=== PATIENT | male | born 1985 | race Caucasian/White ===

== ENCOUNTER 2024-10-28 07:14 | Emergency (ER) | payer OTHER, SELFPAY ==
[2024-10-28 07:17] VITALS: BP 123/79; PULSE 84; RESP 20; TEMP 36.6; O2SAT 95; BMI 39.0
--- NOTE | 2024-10-28 07:29 | ED.GENADULT ---
HPI - General Adult General Chief complaint: Abdominal Pain Stated complaint: abd pain Time Seen by Provider: 10/28/24 07:29 History of Present Illness ED Provider: Lovely RESTREPO narrative: The patient is a 39-year-old male without significant past medical history. He is on no medications. He says that about 9 months ago he experienced lower abdominal pain and was seen at a [facility] Emergency room. He says that he had a CT scan of his abdomen and an ultrasound of his scrotum. No diagnosis was made. He followed up with his PCP at [facility] who did additional outpatient testing and put him on a course of antibiotics, possibly for an STD. He got better and did well for a few months until about 3 weeks ago when he had a recurrence of the same lower abdominal pain and low back pain. He went to an urgent care center last week and had an outpatient CT scan of the abdomen and pelvis with oral and IV contrast. He says that he was told that he had diverticulosis without diverticulitis but no other findings were made. His symptoms have continued and he comes to the hospital today. He says he has been worried in part because someone he spoke to told him a story about someone having an ulcer which ruptured. This made him worried that perhaps his symptoms could be a sign of an ulcer. The patient has had no fever, sweats, chills. He has had no change in his appetite. He has had no change in his bowel habits. He has had no urinary symptoms. The patient is and lives with his . The patient works as a mechanical project manager. He is to do a lot of heavy lifting at work. He says that although the pain is somewhat apparent when he is working he notices the pain most at night when he is not doing anything. He indicates that the pain is across his lower abdomen but he also feels some pain in his left lower back and in his left groin. The patient is smokes about 5 cigarettes per day. Related Data Allergies Allergy/AdvReac Type Severity Reaction Status Date / Time amoxicillin Allergy Hives Verified 10/28/24 07:17 Review of Systems Review of Systems: Yes all other systems are reviewed and are negative PMFSH Social History Social History Advance Directives: No Advance Directives Information Provided: Yes Physical Exam ED Vital Signs: Vital Signs - 24 hr 10/28/24 07:17 10/28/24 08:23 Temperature 97.9 F 97.9 F Pulse Rate 84 84 Respiratory Rate 20 20 Blood Pressure 123/79 123/79 Pulse Oximetry 95 95 Oxygen Delivery Method Room Air Room Air BMI result Body Mass Index 39.0 Const Other: The patient is awake and alert. He does not appear in obvious distress. He does not appear obviously ill. He seems to move around fairly easily. Orientation/consciousness: patient oriented x3 HENMT Other: The face is symmetrical. ?Mucous membranes moist. Eyes Other: Pupils are round equal, conjunctivae are clear, extraocular movements intact Neck Neck: Yes normal visual inspection and Yes full ROM Resp Effort & Inspection: normal respiratory effort Auscultation: clear to auscultation bilaterally Cardio Rate: regular rate Rhythm: regular rhythm Heart sounds: S1 normal heart sound present and S2 normal heart sound present GI Other: The abdomen is soft. He has some tenderness in both lower quadrants on across the lower abdomen generally in the region of the belt line. No rebound or guarding. Other: The patient is a circumcised male. External genitalia is unremarkable. No scrotal swelling. I do not appreciate a hernia in either inguinal canal. The patient seems to have tenderness in the left inguinal canal when I invaginated the scrotum with my finger but I do not have Skin Other: The skin was dry and unremarkable General skin exam: no rashes or lesions noted Neuro General: patient oriented x3, gait normal, tone normal, moves all extremities, no focal motor deficits and CN's II-XI intact bilaterally Extrem Other: There is no calf swelling or tenderness. No asymmetry. No peripheral edema. Medical Decision Making Medical Decision Making [facility] Narrative: the patient is a 39-year-old male who presents for evaluation of lower abdominal pain, mostly in the left side. Also left lower back pain and some left testicular discomfort. The patient had similar symptoms several months ago when he was seen at the emergency room at [facility] and had a negative CT scan of the abdomen and pelvis and a negative testicular Ultrasound. His symptoms improved for several months but recently returned over the last few weeks. because of the return to these symptoms he went to an urgent care center and apparently had an outpatient CT scan of the abdomen and pelvis with intravenous and oral contrast. Apparently this CAT scan showed diverticulosis but no other findings. The patient continues to have discomfort. He says he is most aware of the discomfort at night. He has been for the most part working as a mechanical project manager doing heavy lifting despite these symptom. He has no urinary symptoms. He does not really seem to describe much in the way of gastrointestinal symptoms either. He does not describe nausea or vomiting or loss of appetite or change in bowel habits. His physical exam shows some mild lower abdominal tenderness without rebound or guarding, also some tenderness in the region of the left posterior superior iliac spine, and some generalized left inguinal tenderness without any palpable hernia. Blood testing and urine testing were done which are unremarkable. He has a normal white count and differential, normal CRP, normal urinalysis. Clinically the patient looks quite well. My suspicion for an acute infectious intra-abdominal process is low. I do not appreciate the presence of a hernia. This does not seem to be the presentation of a kidney stone. The patient does not describe any symptoms to suggest an STD. My overall impression is that the patient's physical exam in his laboratory testing are quite unremarkable and reassuring. I think he may be discharged to follow up with his regular doctor. He will also be given the contact information for the [facility] practice in case this syndrome is really more related to back pain than anything else. Lab Data 10/28/24 07:29 10/28/24 07:29 Labs: Lab Results 10/28/24 10/28/24 Range/Units 07:28 07:29 WBC 7.8 (4.8-10.8) X10*3/uL RBC 4.78 (4.60-5.80) X10*6/uL Hgb 14.9 (14.0-18.0) g/dl Hct 42.4 (42.0-52.0) % MCV 88.7 (80.0-98.0) fL MCH 31.2 (27.0-33.0) pg MCHC 35.1 (31.0-36.0) g/dl RDW 11.8 (11.0-16.0) % Plt Count 162 (160-400) X10*3/uL MPV 10.6 (9.4-12.4) fL Immature Gran % (Auto) 0.4 (0.0-0.4) % Neut % (Auto) 58.6 (45-73) % Lymph % (Auto) 32.8 (20-40) % [place] % (Auto) 6.0 (2-11) % Eos % (Auto) 1.9 (0-4) % Baso % (Auto) 0.3 (0-2) % Lymph # (Auto) 2.6 (1.2-4.9) X10*3/uL [place] # (Auto) 0.5 (0.1-1.2) X10*3/uL Eos # (Auto) 0.2 (0.0-0.4) X10*3/uL Baso # (Auto) 0.0 (0.0-0.2) X10*3/uL Abs Immat Gran (auto) 0.03 (0.00-0.03) X10*3/uL Absolute Neuts (auto) 4.6 (2.0-8.3) x10*3/uL Absolute Nucleated RBC 0.000 (0.0-0.012) X10*3/uL Nucleated RBC % (auto) 0.0 (0.0-0.2) /100WBC Sodium 140 (135-145) mmol/L Potassium 4.0 (3.3-5.1) mmol/L Chloride 108 (96-108) mmol/L Carbon Dioxide 24 (22-29) mmol/L Anion Gap 12 (12-20) BUN 18 H (9-16) mg/dL Creatinine 0.84 (0.5-1.4) mg/dL Estim Creat Clear Calc 157.1 Estimated GFR > 60 Random Glucose 122 H (60-115) mg/dL Calcium 9.8 (8.4-10.2) mg/dL Total Bilirubin 0.5 (0.0-1.0) mg/dL AST 30 (5-37) U/L ALT 26 (0-40) U/L Alkaline Phosphatase 102 (39-117) U/L C-Reactive Protein 0.42 (< or = 0.50) mg/dL Total Protein 7.7 (6.5-8.0) g/dL Albumin 4.7 (3.5-5.0) g/dL Lipase 25 (8-78) U/L Urine Color Yellow Urine Appearance Clear Urine pH 5.5 (5.0-9.0) Ur Specific [place] 1.025 (1.005-1.025) Urine Protein Negative (Neg-Trace) mg/dL Urine Glucose (UA) Negative (Negative) mg/dL Urine Ketones Negative (Negative) mg/dL Urine Blood Negative (Negative) Urine Nitrite Negative (Negative) Ur Leukocyte Esterase Negative (Negative) Discharge Plan Discharge Clinical Impression: Lower abdominal pain, Low back pain, Left groin pain Patient Disposition: Home, Self-Care Additional Instructions: Your testing today in the emergency room seems very reassuring. Your testing suggest that there was no infectious process or any likely other acutely dangerous process. It is possible this pain is more related to a back problem or other musculoskeletal problem rather than an intra-abdominal process. Please plan on following up with your regular doctor. I think it might also be reasonable for you to be seen by a back doctor. You has been given the contact information for [facility] in the [place]. You may continue to use ibuprofen and acetaminophen as needed for pain. Return to the emergency room if significantly worse. Referrals: [facility] [Provider Group, Sports Medicine] Chandana Sparks MD [Physician, Internal Medicine] Stand Alone Forms: Work/School Release Discharge Date/Time: 10/28/24 09:02 Print Language: Guinean
[2024-10-28 07:36] LABS: MANUAL DIFF FLAG NO
--- OUTSIDE RECORDS SUMMARY | 2024-10-28 07:38 | XMS_ITS | Clinical Summary ---
Author Organization [facility] [address] [place] [address] [place] [phone] Phone Care Team Providers Care Coo Name Role Phone Chandana Sparks MD Primary Care Provider Allergies Active Allergy Reactions Criticality Noted Date Comments Amoxicillin 04/07/2013 Medications lisinopriL (PRINIVIL,ZEST RIL) 10 mg tablet TAKE 1 TABLET BY MOUTH EVERY DAY 90 tablet 1 5 Active omeprazole (PriLOSEC) [address] capsule TAKE 1 CAPSULE BY MOUTH 1 TIME EACH DAY. 90 capsule 1 5 Active valACYclovir (VALTREX) 1 gram tablet Take 1 tablet (1,000 mg total) by mouth 3 (three) times a day. 5 10/06/19 25 Discontin ued(Thera py completed ) acyclovir (ZOVIRAX) 5 % ointment APPLY 1 APPLICATION TOPICALLY 6 TIMES PER DAY FOR 7 DAYS 5 10/06/19 25 Discontin ued(Thera py completed ) naproxen (NAPROSYN) 500 mg tablet TAKE 1 TABLET BY MOUTH TWICE A DAY NEEDED FOR MILD PAIN 60 tablet 5 10/06/19 25 Discontin ued(Thera py completed ) Active Problems Problem Noted Date Diagnosed Date GERD (gastroesophageal reflux disease) 4 Morbid obesity with BMI of 4 5.0-49.9, adult (CMS/HCC V24, CMS/HCC V28) 02/05/2024 Traumatic rupture of volar plate of left index f shad 01/30/2023 Dysphagia 11/08/2020 Essential hypertension 01/07/2020 Obstructive sleep apnea 09/18/2018 Overview (02/05/2024): [facility] Home Sleep Apnea Test: Date 09/15/2018; Wt 320#; BMI 43; RY 6, AI 0.4; HI 6; Unclassified apneas 0; Obstructive apneas 2; Central apneas 0; Mixed apneas 0; hypopneas 25; average oxygen saturation 92% (lowest 81% without saturations <88% for 5% or more of study) - Obstructive Sleep Apnea - mild; mostly hypopneas; without sleep related hypoventilation by 2018 home sleep apnea test. Tobacco use disorder 04/07/2013 Encounters Date Type Department Care Team Description 10/05/2024 2:00 PM EDT Office Visit Adult Medicine [address] [phone] Comfort Davis PA Lower abdominal pain (Primary Dx); BMI 38.0-38.9,adult; Current every day smoker; Diverticulosis; Fatty liver; Essential hypertension; Chest pain, unspecified type; Groin strain, unspecified laterality, subsequent encounter 10/05/2024 Telephone Adult Medicine [address] [phone] Jocelyn Holland MA from Last 3 Months Immunizations Name Administration Dates Next Due Influenza Quadravalent, MDCK , 0.5ml, preservative free (Flucelvax) 6mo and older 12/28/2018 Influenza trivalent, 0.5mL, preservative free (Fluarix; FluLaval; Fluzone) ages 6mo and older (Afluria) 3 years and older 01/18/2014 Tdap Tetanus diptheria acell ular pertussis (Boostrix; Adacel) 7yo and older 04/18/2023 Surgical History Surgery Date Site/Laterality Comments ESOPHAGOGASTRODUODENOSCOPY 04/02/2021 PROCEDURE: CA EGD TRANSORAL BIOPSY SINGLE/MULTIPLE; COMMENT: Dr. Fish -antral gastritis otherwise unremarkable. Gastric biopsy showing mild chronic inactive gastritis. No H. pylori infection. Esophageal biopsies normal. Medical History Medical History Date Comments Asthma DX:Asthma ALEJANDRA (obstructive sleep apnea) DX :ALEJANDRA (obstructive sleep apnea) GERD (gastroesophageal reflux disease) DX:GERD (gastroesophageal reflux disease) Family History Medical History Relation Name Comments Other: unknown Father Alcohol abuse Half-Brother 1 Alcohol/Drug Half-Brother 2 Depression Mother Other cancer Mother No Known Problems Sister Relation Name Status Comments Father Alive Half-Brother 1 Alive Half-Brother 2 Alive Maternal Grandfather Maternal Grandmother Mother Alive Paternal Grandfather Paternal Grandmother Alive Sister Alive Social History Tobacco Use Types Packs/Day Years Used Date Smoking Tobacco: Some Days Cigarettes Smokeless Tobacco: Never Tobacco Cessation:Ready to Q uit: Not Asked; Counseling Given: Not Answered Alcohol Use Standard Drinks/Week Comments Yes 0 (1 standard drink = 0.6 oz pur e alcohol) Housing Instability Answer Date Recorde d Are you worried that in the next 2 months you may not have stable housing? No 03/19/2024 Food Access & Nutrition Answer Date Rec orded Do you have access to a vari ety of food including fruits and vegetables? Yes 03/19/2024 Access to Healthcare Answer Date Record ed Within the last 3 months, ho laura many times did you visit the emergency department for your medical care? 1 03/19/2024 Health Literacy Answer Date Recorded How often do you need to hav e someone help you when you read instructions, pamphlets, or other written material from your doctor or pharmacy? Never 03/19/2024 Caregiver: How often do you need to have someone help you when you read instructions, pamphlets, or other written material from your doctor or pharmacy? Not on file 03/19/2024 Financial Risk Answer Date Recorded How hard is it for you to pa y for the very basics like food, housing, medical care, and air conditioning / heating? Not very hard 03/19/2024 Transportation Answer Date Recorded Has the lack of transportati on kept you from meetings, work, or from getting things needed for daily living? No Has the lack of transportati on kept you from medical appointments or from getting medications? No 03/19/2024 Social Isolation Answer Date Recorded How often do you feel lonely or isolated from th ose around you? Never 03/19/2024 Food Risk Answer Date Recorded Within the past 12 months we worried whether our food would run out before we got money to buy more. Never true 03/19/2024 Within the past 12 months th e food we bought just didn't last and we didn't have money to get more. Never true 03/19/2024 Dependent Care Answer Date Recorded Do you need help finding or paying for care for your loved ones. For example, maternal child nurse or elderly care for an older adult? No 03/19/2024 Education Answer Date Recorded Do you think completing more education or training, like finishing a GED, going to college, or learning a trade, would be helpful for you? No 03/19/2024 Employment and Income Answer Date Recor ded During the last four weeks, have you been actively looking for work? No 03/19/2024 Living Situation Answer Date Recorded What is your living situation? 0 03/19/2024 Sex and Gender Information Value Date Recorded Sex Assigned at Not on file Legal Sex Male 9:36 AM EST Gender Identity Not on file Sexual Orientation Not on file Obstetrics History Last Filed Vital Signs Vital Sign Reading Time Taken Comments Blood Pressure 134/88 10/05/2024 2:03 PM EDT Pulse 90 10/05/2024 2:03 PM EDT Temperature 36.8 C (98.2 F) 10/05/2024 2:03 PM EDT Respiratory Rate 16 10/05/2024 2:03 PM EDT Oxygen Saturation 95% 10/05/2024 2:03 PM EDT Inhaled Oxygen Concentration - - Weight 129 kg (285 lb) 10/05/2024 2:03 PM EDT Height 182.9 cm (6') 03/19/2024 10:22 AM EST Body Mass Index 38.65 03/19/2024 10:22 AM EST Plan of Treatment Upcoming Encounters Date Type Department Care Team (Late st Contact Info) Description 11/02/2024 8:15 AM EDT Ancillary Procedure [facility] [address] [place] [address] Health Maintenance Due Date Last Done Comments Hepatitis B Vaccines (1 of 3 - 19+ 3-dose series) 05/10/2002 Pneumococcal Vaccine: Pediatrics (0 to 5 Years) and At-Risk Patients (6 to 49 Years) (1 of 2 - PCV) 05/10/2002 COVID-19 Vaccine (1 2023-2 5 season) 2024 Social Influencers of Health Screening 03/19/2025 03/19/2024 Hypertension/CHF/CAD Annual BMP Blood Test 10/05/2025 10/05/2024, 08/02/2022 Cholesterol Screening (Lipid Panel) 10/05/2029 10/05/2024, 08/02/2022 DTaP,Tdap,and Td Vaccines (2 - Td or Tdap) 04/18/2033 04/18/2023 Influenza Vaccine Discontinued 12/28/2018, 01/18/2014 HIV Screening Completed 02/20/2024 Hepatitis C Screening Completed 02/20/2024 Depression Screening Completed 03/19/2024 HIB Vaccines Aged Out No longer eligi ble based on patient's age to complete this topic HPV Vaccines Aged Out No longer eligi ble based on patient's age to complete this topic Hepatitis A Vaccines Aged Out No long er eligible based on patient's age to complete this topic IPV Vaccines Aged Out No longer eligi ble based on patient's age to complete this topic MMR Vaccines Aged Out No longer eligi ble based on patient's age to complete this topic Meningococcal ACWY Vaccine Aged Out N o longer eligible based on patient's age to complete this topic Meningococcal B Vaccine Aged Out No l onger eligible based on patient's age to complete this topic RSV Immunization Patients Under 20 months Aged Out No longer eligible based on patient's age to complete this topic Varicella Vaccines Aged Out No longer eligible based on patient's age to complete this topic Procedures Procedure Name Priority Date/Time Associated Diagnosis Comments ECG 12-LEAD Routine 10/05/2024 4:51 PM EDT BMI 38.0-38.9,adult Essential hypertension Chest pain, unspecified type COMPREHENSIVE METABOLIC PANEL Routine 10/05/2024 3:23 PM EDT Fatty liver Essential hypertension LIPID PANEL WITH REFLEX TO DIRECT LDL Routine 10/05/2024 3:23 PM EDT Fatty liver Essential hypertension HEPATITIS PANEL, ACUTE WITH REFLEX TO CONFIRMATION Routine 02/20/2024 9:21 AM EST Screening examination for STI HIV 1, 2 ANTIBODY, P24 ANTIGEN WITH REFLEX TO DIFFERENTIATION Routine 02/20/2024 9:21 AM EST Screening examination for STI from Last 3 Months or Most Recently Relevant to Health Maintenance Results * ECG 12 lead (10/05/2024 4:51 PM EDT) Impressions Sheri Lanza JASBIR - 10/05/2024 4:51 PM EDT EKG: Rate 80 bpm. Sinus rhythm. T wave inversion in V1. No acute ST or T-segment changes. No previous tracing available for comparison. us Comfort LAUREN ECG ORDERABLES Final Result * (ABNORMAL) Lipid panel with reflex to direct LDL (10/05/2024 3:23 PM EDT) Cholesterol 184 0 - 200 mg/dL LAB CHEMISTRY METHOD 10/05/2024 6:34 PM [facility] Triglycerides 141 0 - 150 mg/dL LAB CHEMISTRY METHOD 10/05/2024 6:34 PM [facility] HDL 41 >=40 mg/dL LAB CHEMISTRY METHOD 10/05/2024 6:34 PM [facility] LDL Calculated 115(H) 0 - 100 mg/dL LAB CHEMISTRY METHOD 10/05/2024 6:34 PM [facility] Comment:Estimated LDL Calcul ated using equation: Total cholesterol - HDL cholesterol - (Triglycerides/5) VLDL Cholesterol Joey 28.2 mg/dL LAB CHEMISTRY METHOD 10/05/2024 6:34 PM [facility] Non HDL Chol. (LDL+VLDL) 143 <145 mg/dL LAB CHEMISTRY METHOD 10/05/2024 6:34 PM [facility] Chol/HDL Ratio 4.5(H) 0.0 - 4.4 LAB CHEMISTRY METHOD 10/05/2024 6:34 PM [facility] Blood Venous blood specimen / Unknown Venipuncture / Unknown 10/05/2024 3:23 PM EDT 10/05/2024 3:23 PM EDT us Comfort LAUREN LAB BLOOD ORDERABLES Final Resul t [facility] [address] [place] [address], [place] [phone] * (ABNORMAL) Comprehensive metabolic panel (10/05/2024 3:23 PM EDT) Pathologist [facility] Sodium 137 133 - 145 mmol/L LAB CHEMISTRY METHOD 10/05/2024 6:34 PM [facility] Potassium 4.1 3.5 - 5.5 mmol/L LAB CHEMISTRY METHOD 10/05/2024 6:34 PM [facility] Chloride 106 96 - 110 mmol/L LAB CHEMISTRY METHOD 10/05/2024 6:34 PM [facility] CO2 27 21 - 32 mmol/L LAB CHEMISTRY METHOD 10/05/2024 6:34 PM [facility] Anion Gap 4 3 - 11 LAB CHEMISTRY METHOD 10/05/2024 6:34 PM [facility] Glucose 78 70 - 100 mg/dL LAB CHEMISTRY METHOD 10/05/2024 6:34 PM [facility] BUN 14 5 - 25 mg/dL LAB CHEMISTRY METHOD 10/05/2024 6:34 PM [facility] Creatinine 1.04 0.70 - 1.30 mg/dL LAB CHEMISTRY METHOD 10/05/2024 6:34 PM [facility] eGFR 93 >=60 mL/min/1. 73m2 LAB CHEMISTRY METHOD 10/05/2024 6:34 PM [facility] Comment:Calculation based on the Chronic Kidney Disease Epidemiology Collaboration (CKD-EPI) equation refit without adjustment for race. BUN/Creatinine Ratio 13.5 LAB CHEMISTRY METHOD 10/05/2024 6:34 PM [facility] Calcium 9.9 8.5 - 10.5 mg/dL LAB CHEMISTRY METHOD 10/05/2024 6:34 PM EDT [facility] AST (SGOT) 19 10 - 42 unit/L LAB CHEMISTRY METHOD 10/05/2024 6:34 PM EDT [facility] ALT (SGPT) 31 10 - 60 unit/L LAB CHEMISTRY METHOD 10/05/2024 6:34 PM EDT [facility] Alkaline Phosphatase 122(H) 42 - 121 unit/L LAB CHEMISTRY METHOD 10/05/2024 6:34 PM EDT [facility] Total Protein 7.8 6.0 - 8.0 g/dL LAB CHEMISTRY METHOD 10/05/2024 6:34 PM EDT [facility] Albumin 4.5 3.2 - 5.0 g/dL LAB CHEMISTRY METHOD 10/05/2024 6:34 PM EDT [facility] Total Bilirubin 0.3 0.0 - 1.4 mg/dL LAB CHEMISTRY METHOD 10/05/2024 6:34 PM EDT [facility] Blood Venous blood specimen / Unknown Venipuncture / Unknown 10/05/2024 3:23 PM EDT 10/05/2024 3:23 PM EDT Comfort LAUREN LAB BLOOD ORDERABLES Final Resul t [facility] [address] [place] [address], * HIV 1,2 antibody, p24 antigen with reflex to differentiation (02/20/2024 9:21 AM EST) HIV Combo AB/AG Negative Negative LAB CHEMISTRY METHOD 02/20/2024 12:46 PM EST [facility] Blood Venous blood specimen / Unknown Venipuncture / Unknown 02/20/2024 9:21 AM EST 02/20/2024 9:21 AM EST Narrative [facility] - 02/20/2024 12:46 PM EST This assay is a 4th generation assay allowing for earlier detection of HIV infection by detecting the presence of the HIV-1 p24 antigen as well as the traditional antibodies to HIV type 1 (including group O) and type 2. Use of a 4th generation assay is the current CDC recommendation for HIV screening. Chandana Sparks MD LAB BLOOD ORDERABLES F inal Result Performing Organization Address City/[facility]/ZIP Co de Phone Number [facility] [address] [place] [address], [place] [phone] * Hepatitis panel, acute with reflex to confirmation (02/20/2024 9:21 AM EST) Hepatitis B Surface Ag Negative Negative LAB CHEMISTRY METHOD 02/20/2024 12:47 PM EST [facility] Hepatitis A Antibody IgM Negative Negative LAB CHEMISTRY METHOD 02/20/2024 12:47 PM EST [facility] Hep B Core IgM Negative Negative LAB CHEMISTRY METHOD 02/20/2024 12:47 PM EST [facility] Hepatitis C Antibody Negative Negative LAB CHEMISTRY METHOD 02/20/2024 12:47 PM EST [facility] Blood Venous blood specimen / Unknown Venipuncture / Unknown 02/20/2024 9:21 AM EST 02/20/2024 9:21 AM EST Chandana Sparks MD LAB BLOOD ORDERABLES F inal Result Performing Organization Address City/[facility]/ZIP Co de Phone Number [facility] [address] [place] [address], [place] [phone] from Last 3 Months or Most Recently Relevant to Health Maintenance Insurance [facility] Care Teams Coo Relationship Specialty Start Date End Date Chandana Sparks MD [address] [place] [phone] PCP - General 12/11/23
--- OUTSIDE RECORDS SUMMARY | 2024-10-28 07:38 | XMS_ITS | Encounter Summary ---
Author Organization [facility] Address [address] [place] [address] Care Team Providers Care [employer] Chief Name Role Phone Chandana Sparks MD Primary Care Provider Reason for Visit * Reason Onset Date Comments Abdominal Pain 10/05/2024 Encounter Details Date Type Department Care Team ([facility] st Contact Info) Description 10/05/2024 Telephone Adult Medicine [address] [phone] [place], [place] Social History Tobacco Use Types Packs/Day Years Used Date Smoking Tobacco: Some Days Cigarettes Smokeless Tobacco: Never Alcohol Use Standard Drinks/Week Comments Yes 0 [...] ed Within the last 3 months, ho w many times did you visit the emergency [...] care for your loved ones. For example, early childhood director or elderly care for an older adult? [...] on file Sexual Orientation Not on file documented as of this encounter Progress Notes * Pippa Herrmann RN - 10/05/2024 9:13 AM EDT Pt. Sts he has lower abd. Discomfort that radiates at time towards his testicles. He States he had a similar issue back in January to February and had a CT-scan which he was told did not show any issues. . The discomfort went away and then returned this week , he was seen in a urgent care and had act-scan with contrast and was told he has a slight case of diverticulitis and to follow up with PCPoffice . Pt. Is not currently on antibiotics . He is currently at work and stst he is eating and drinking without issues , has a good appetite, no abd. Tenderness or distention, Bm's are normal and urinating without issue . No fever or chills, no cp, no sob, no weakness, no n/v but did vomit last week after being in the sun. Pain on scale is mild at 4/10 Apt. Made for today and advised if symptoms worse to call the office or be evaluated in the ER. Forincreasing abd. Pain,cp,sob,weakness or lightheadedness. Pt. agrees * Jocelyn Holland MA - 10/05/2024 9:07 AM EDT Patient call requires triage: Symptoms patient is presenting: Lower Abdominal pain. How long has patient had these symptoms?: about 1 week For ALL patients calling to schedule any appointment (routine, sick visit, follow up, consult, etc.) in the outpatient setting please ask the following questions: Do you have fever of higher than 101, sore throat with difficulty swallowing or severe shortness ofbreath? no If YES to any of these above symptoms, send a message to triage and do not book. Red dot. If no, an audio or video visit should be booked. Have you had close contact with someone with Coronavirus in the last 14 days? no Have you traveled abroad? no Have you traveled recently to another state outside of [place], [place], [place], [place], [place], [place], [place]? no o If yes, did you quarantine for 14 days or have a negative covid test? no If yes to any of the above, patient is not to be scheduled in office until after 14 day quarantine or negative covid test. If pain or injury related was it due to an accident at work or from a motor vehicle accident? If yes, date of accident/Injury: No If yes, gather 3rd republican insurance information Third Republican Information: not applicable PCP: Chandana Sparks MD Payor: [employer] PLAN / Plan: [employer] MEDICAID / Product Type: *No Product type* / documented in this encounter Plan of Treatment Upcoming Encounters Date Type Department Care Team (Late st Contact Info) Description 11/02/2024 8:15 AM EDT Ancillary Procedure [facility] [address] [place] [id number] documented as of this encounter Visit Diagnoses Not on filedocumented in this encounter Additional Health Concerns Assessment Noted Time PHQ-9 Depression Total Score: 0 03/19/19 10:22 AM EST documented as of this encounter Care Teams [employer] Chief Relationship Specialty Start Date End Date Chandana Sparks MD [address] [place] [address] PCP - General 12/11/23 documented as of this encounter
[2024-10-28 07:39] LABS: Hematocrit 42.4 % (42.0-52.0); Hemoglobin 14.9 g/dl (14.0-18.0); Imm Gran Abs Auto 0.03 X10*3/uL (0.00-0.03); Imm Gran Pct Auto 0.4 % (0.0-0.4); Lymphocytes Absolute Auto 2.6 X10*3/uL (1.2-4.9); Mean Corpuscular HGB Conc 35.1 g/dl (31.0-36.0); Mean Corpuscular Hemoglobin 31.2 pg (27.0-33.0); Mean Corpuscular Volume 88.7 fL (80.0-98.0); NRBC Abs Auto 0.000 X10*3/uL (0.0-0.012); NRBC Pct Auto 0.0 /100WBC (0.0-0.2); Platelet Count 162 X10*3/uL (160-400); Red Blood Count 4.78 X10*6/uL (4.60-5.80); White Blood Count 7.8 X10*3/uL (4.8-10.8)
[2024-10-28 07:41] LABS: Appearance Urine Clear; Glucose Urine UA Negative (Negative); PH 5.5 (5.0-9.0); Specific Gravity - Urine 1.025 (1.005-1.025)
[2024-10-28 07:58] LABS: Albumin Level 4.7 g/dL (3.5-5.0); Alkaline Phosphatase 102 U/L (39-117); Anion Gap 12 (12-20); Aspartate Amino Transferase 30 U/L (5-37); Blood Urea Nitrogen 18 mg/dL (9-16); Calcium 9.8 mg/dL (8.4-10.2); Carbon Dioxide 24 mmol/L (22-29); Chloride 108 mmol/L (96-108); Creatinine Clr Calc Pharmacy 157.1; Estimated Glomerular Filt Rate > 60; Lipase 25 U/L (8-78); Potassium 4.0 mmol/L (3.3-5.1); Sodium 140 mmol/L (135-145); Total Protein 7.7 g/dL (6.5-8.0)
[2024-10-28 08:10] LABS: Alanine Aminotransferase 26 U/L (0-40)
[2024-10-28 08:23] VITALS: BP 123/79; PULSE 84; RESP 20; TEMP 36.6; O2SAT 95
== END 2024-10-28 09:02 | disposition home or self-care (01) ==
PROVIDERS: Emergency Provider Emergency Medicine
DX: R10.32 Left lower quadrant pain (principal); M54.50 Low back pain, unspecified; R10.814 Left lower quadrant abdominal tenderness; F17.210 Nicotine dependence, cigarettes, uncomplicated; Z79.899 Other long term (current) drug therapy
CPT/HCPCS: 36415; 80053; 81003; 83690; 85025; 86140; 99283; 99284